=== PATIENT | male | born 1990 | race American Indian/Alaskan Native ===

== ENCOUNTER 2021-06-17 15:45 | Emergency (ER) | payer SELFPAY ==
--- NOTE | 2021-06-17 17:33 | Emergency Department Report ---
ED ENT HPI - General Chief complaint: Dental/Oral Stated complaint: LEFT SIDE TOOTH PAIN Time Seen by Provider: 06/17/21 17:24 Source: patient Mode of arrival: Ambulatory Limitations: No Limitations - History of Present Illness Initial comments: Patient is a 31-year-old male presents emergency room complaints of left lower dental pain that initially began a couple months ago but worsened over the last 2 weeks. He states it has now become very painful. He states he believes the tooth is decayed. He states he has not seen a dentist in multiple years. He states he did notice a small amount of swelling to the gums. He denies any fever, vomiting, chills, difficulty swallowing or difficulty breathing. No past medical history. No allergies medications. - Related Data Previous Rx's Medication Instructions Recorded Last Taken Type Chlorhexidine Mouthwash [Peridex] 15 ml MM BID #1 bottle 06/17/21 Unknown Rx Naproxen 375 mg PO BID PRN #14 tablet 06/17/21 Unknown Rx Penicillin V Potassium 500 mg PO QID 7 Days #28 tablet 06/17/21 Unknown Rx Allergies Allergy/AdvReac Type Severity Reaction Status Date / Time No Known Allergies Allergy Unverified 06/17/21 15:47 ED Dental HPI - General Chief complaint: Dental/Oral Stated complaint: LEFT SIDE TOOTH PAIN Time Seen by Provider: 06/17/21 17:24 Source: patient Mode of arrival: Ambulatory Limitations: No Limitations - Related Data Previous Rx's Medication Instructions Recorded Last Taken Type Chlorhexidine Mouthwash [Peridex] 15 ml MM BID #1 bottle 06/17/21 Unknown Rx Naproxen 375 mg PO BID PRN #14 tablet 06/17/21 Unknown Rx Penicillin V Potassium 500 mg PO QID 7 Days #28 tablet 06/17/21 Unknown Rx Allergies Allergy/AdvReac Type Severity Reaction Status Date / Time No Known Allergies Allergy Unverified 06/17/21 15:47 ED Review of Systems ROS: Stated complaint: LEFT SIDE TOOTH PAIN Other details as noted in HPI Comment: All other systems reviewed and negative ED Past Medical Hx - Past Medical History Previous Medical History?: No - Surgical History Past Surgical History?: No - Medications Home Medications: Home Medications Medication Instructions Recorded Confirmed Last Taken Type Chlorhexidine Mouthwash [Peridex] 15 ml MM BID #1 bottle 06/17/21 Unknown Rx Naproxen 375 mg PO BID PRN #14 tablet 06/17/21 Unknown Rx Penicillin V Potassium 500 mg PO QID 7 Days #28 tablet 06/17/21 Unknown Rx ED Physical Exam - General Limitations: No Limitations General appearance: alert, in no apparent distress - Head Head exam: Present: atraumatic, normocephalic - Eye Eye exam: Present: normal appearance - ENT ENT exam: Present: mucous membranes moist, other (the left lower back molar is decayed, there is associated edema of the gumline, there are dental caries present to the right lower molars, uvula is midline, no uvular edema or deviation, no trismus, no tongue elevation, no muffled voice, no submandibular edema) - Respiratory Respiratory exam: Present: normal lung sounds bilaterally. Absent: respiratory distress, wheezes, rales, rhonchi, stridor, chest wall tenderness, accessory muscle use, decreased breath sounds, prolonged expiratory - Cardiovascular Cardiovascular Exam: Present: normal rhythm, tachycardia (mildly) - Neurological Exam Neurological exam: Present: alert, oriented X3 - Psychiatric Psychiatric exam: Present: normal affect, normal mood - Skin Skin exam: Present: warm, dry, intact ED Course Vital Signs 06/17/21 06/17/21 06/17/21 15:49 17:31 18:02 Temperature 99.0 F 99.5 F Pulse Rate 111 H 102 H 105 H Respiratory 18 16 Rate Blood Pressure 131/82 121/88 O2 Sat by Pulse 98 98 98 Oximetry ED Medical Decision Making - Medical Decision Making Patient is a 31-year-old male presents emergency room complaints of left lower dental pain that initially began a couple months ago but worsened over the last 2 weeks. He states it has now become very painful. He states he believes the tooth is decayed. He states he has not seen a dentist in multiple years. He states he did notice a small amount of swelling to the gums. He denies any fever, vomiting, chills, difficulty swallowing or difficulty breathing. No past medical history. No allergies medications. Vitals with mild tachycardia, likely secondary to dental pain. On exam:the left lower back molar is decayed, there is associated edema of the gumline, there are dental caries present to the right lower molars, uvula is midline, no uvular edema or deviation, no trismus, no tongue elevation, no muffled voice, no submandibular edema. Examination appears insistent with infected dental caries and he has significant pain with palpation. There are no signs of facial cellulitis, facial abscess, or Jesus's at this time. Patient given prescription for medication. Advised patient Please take medication as prescribed. May gargle with warm salt water. Follow- up with a dentist. Return to emergency room for any new or worsening symptoms. Critical care attestation.: If time is entered above; I have spent that time in minutes in the direct care of this critically ill patient, excluding procedure time. ED Disposition Clinical Impression: Infected dental caries Disposition: HOME / SELF CARE / HOMELESS Is pt being admited?: No Does the pt Need Aspirin: No Condition: Stable Additional Instructions: Please take medication as prescribed. May gargle with warm salt water. Follow- up with a dentist. Return to emergency room for any new or worsening symptoms. Prescriptions: Naproxen 375 mg PO BID PRN #14 tablet PRN Reason: pain Penicillin V Potassium 500 mg PO QID 7 Days #28 tablet Chlorhexidine Mouthwash [Peridex] 15 ml MM BID #1 bottle Referrals: a, dentist [Other] - 2-3 Days Time of Disposition: 17:31 Print Language: [place]
[2021-06-17 18:10] VITALS: BP 121/88
== END 2021-06-17 18:15 | disposition home or self-care (01) ==
LOC: ED 15:45
DX: K02.9 Dental caries, unspecified (principal)
CPT/HCPCS: 99282

== ENCOUNTER 2021-11-02 14:06 | Emergency (ER) | payer SELFPAY ==
[2021-11-02] MEDS ORDERED: DEXAMETHASONE 4 MG TAB PO ONE (15:54)
[2021-11-02] MEDS ORDERED: KETOROLAC 10 MG TAB PO ONE (15:54)
[2021-11-02] MEDS ORDERED: diphenhydrAMINE 25 MG CAP PO ONE (15:55)
[2021-11-02] MEDS ORDERED: METOCLOPRAMIDE 10 MG TAB PO ONE (15:55)
--- NOTE | 2021-11-02 16:46 | Emergency Department Report ---
ED Headache HPI - General Chief Complaint: Headache Stated Complaint: HEADACHES Time Seen by Provider: 11/02/21 15:17 - History of Present Illness Initial Comments: 31-year-old black male with no past medical history presents to the emergency department for evaluation today history of headache with intermittent congestion, dizziness, photophobia, and blurred vision. Denies fever, nausea, vomiting, injury, or trauma. He states that he took Aleve and TheraFlu for headache without improvement. Timing/Duration: waxing and waning, other (2 to 3 days) Quality: severe Head Injury Location: frontal Recent Head Trauma: no recent headache/trauma Modifying Factors: improves with: exposure to light Associated Symptoms: facial pain, nasal congestion, nasal drainage, vision changes. denies: confusion, fatigue, fever/chills, flushing, loss of consciousness, nausea/vomiting, numbness in legs/feet, rash, seizures, sinus infection, stiff neck, weakness Allergies/Adverse Reactions: Allergies No Known Allergies Allergy (Verified 11/02/21 15:09) Home Medications: Ambulatory Orders Chlorhexidine Mouthwash [Peridex] 15 ml MM BID #1 bottle 06/17/21 Naproxen 375 mg PO BID PRN #14 tablet 06/17/21 Penicillin V Potassium 500 mg PO QID 7 Days #28 tablet 06/17/21 Cetirizine HCl/Pseudoephedrine [Zyrtec-D Tablet] 1 each PO BID #30 tab 11/02/21 ED Review of Systems ROS: Stated complaint: HEADACHES Other details as noted in HPI Comment: All other systems reviewed and negative Constitutional: denies: chills, fever Eyes: eye pain, vision change. denies: eye discharge ENT: congestion. denies: ear pain, throat pain, dental pain Respiratory: denies: cough, shortness of breath, SOB with exertion, SOB at rest Cardiovascular: denies: chest pain, palpitations, dyspnea on exertion, orthopnea, edema, syncope, paroxysmal nocturnal dyspnea Gastrointestinal: denies: abdominal pain, nausea, vomiting Genitourinary: denies: urgency, dysuria Musculoskeletal: denies: back pain Skin: denies: rash, lesions Neurological: headache. denies: weakness, numbness, paresthesias, confusion, abnormal gait, vertigo ED Past Medical Hx - Past Medical History Previous Medical History?: No - Medications Home Medications: Home Medications Medication Instructions Recorded Confirmed Last Taken Type Chlorhexidine Mouthwash [Peridex] 15 ml MM BID #1 bottle 06/17/21 Unknown Rx Naproxen 375 mg PO BID PRN #14 tablet 06/17/21 Unknown Rx Penicillin V Potassium 500 mg PO QID 7 Days #28 tablet 06/17/21 Unknown Rx Cetirizine HCl/Pseudoephedrine 1 each PO BID #30 tab 11/02/21 Unknown Rx [Zyrtec-D Tablet] ED Physical Exam - General Limitations: No Limitations General appearance: alert, in no apparent distress - Head Head exam: Present: atraumatic, normocephalic - Eye Eye exam: Present: normal appearance. Absent: conjunctival injection - ENT ENT exam: Present: mucous membranes moist. Absent: normal exam (Bilateral nasal mucosal edema and turbinate swelling along with tenderness to frontal and maxillary sinus areas.), normal orophraynx (Erythema noted to posterior oropharynx) - Expanded ENT Exam Expanded Throat exam: Negative: tonsillar erythema, tonsillomegaly, tonsillar exudate, R peritonsillar mass, L peritonsillar mass - Respiratory Respiratory exam: Present: normal lung sounds bilaterally. Absent: respiratory distress, wheezes, rales, rhonchi, stridor, chest wall tenderness - Cardiovascular Cardiovascular Exam: Present: regular rate, normal heart sounds - GI/Abdominal GI/Abdominal exam: Present: soft, normal bowel sounds. Absent: distended, tenderness, guarding, rebound, rigid - Extremities Exam Extremities exam: Present: normal inspection - Back Exam Back exam: Present: normal inspection. Absent: tenderness, CVA tenderness (R), CVA tenderness (L), vertebral tenderness - Neurological Exam Neurological exam: Present: alert, oriented X3, CN II-XII intact, normal gait, reflexes normal. Absent: motor sensory deficit - Expanded Neurological Exam Expanded Patient oriented to: Present: person, place, time Speech: Present: fluid speech Cranial nerves: EOM's Intact: Normal, Tongue Deviation: Normal, Facial Sensation: Normal Ataxia: Absent: yes Motor strength exam: RUE: 5, LUE: 5, RLE: 5, LLE: 5 Best Eye Response ([place]): (4) open spontaneously Best Motor Response ([place]): (6) obeys commands Best Verbal Response ([place]): (5) oriented Lee Total: 15 - Psychiatric Psychiatric exam: Present: normal affect, normal mood - Skin Skin exam: Present: warm, dry, intact, normal color ED Course Vital Signs 11/02/21 15:06 Temperature 98.6 F Pulse Rate 88 Respiratory 16 Rate Blood Pressure 125/73 O2 Sat by Pulse 100 Oximetry - Reevaluation(s) Reevaluation #1: 11/02/21 16:44 Mostly resolved. Patient states that he feels much better. ED Medical Decision Making - Medical Decision Making 31-year-old black male with no past medical history presents to the emergency department for evaluation today history of headache with intermittent congestion, dizziness, photophobia, and blurred vision. Denies fever, nausea, vomiting, injury, or trauma. He states that he took Aleve and TheraFlu for headache without improvement. Physical exam consistent with sinusitis. Headache resolved after medications. No neurologic deficits noted. Patient will be discharged home on Zyrtec-D to take twice a day for next couple weeks and advised to follow-up with primary care provider for further evaluation and management. He verbalized understanding of and agreement with plan of care. Critical care attestation.: If time is entered above; I have spent that time in minutes in the direct care of this critically ill patient, excluding procedure time. ED Disposition Clinical Impression: Sinus headache Disposition: 01 HOME / SELF CARE / HOMELESS Is pt being admited?: No Does the pt Need Aspirin: No Condition: Stable Instructions: Sinus Headache, [id number] Additional Instructions: Take medications as prescribed. Drink plenty of noncaffeinated fluids. Follow- up with primary care provider if worsening symptoms. Prescriptions: Cetirizine HCl/Pseudoephedrine [Zyrtec-D Tablet] 1 each PO BID #30 tab Referrals: SUMEET BRISENO MD [Primary Care Provider] - 3-5 Days Time of Disposition: 16:46
[2021-11-02 17:17] VITALS: BP 122/76
== END 2021-11-02 17:18 | disposition home or self-care (01) ==
LOC: ED 14:06
DX: G44.89 Other headache syndrome (principal)
CPT/HCPCS: 99282; J8540